=== PATIENT | female | born 1990 | race American Indian/Alaskan Native ===

== ENCOUNTER 2017-10-19 10:56 | Outpatient (CLI) | payer OTHER ==
--- NOTE | 2017-10-19 11:30 | Ultrasound Report ---
BILATERAL BREAST ULTRASOUND: 10/19/17 10:56:00 CLINICAL: 27 are old with recent bilateral palpable lumps. She stated that she had felt something at 12 o'clock in the right breast which has resolved and that her doctor felt something in the left breast and she feels nothing in the left breast. COMPARISON: None. FINDINGS: Ultrasoundof the right breast was performed from 10 o'clock to 2 o'clock and ultrasound of the left breast was performed from 10 o'clock to 2 o'clock and demonstrated normal fibroglandular structures. No mass, cyst or shadowing. IMPRESSION: Negative bilateral breast ultrasound. BI-RADS 1 - - Negative RECOMMENDATION: Clinical followup and routine mammographic screening based on ACS guidelines.
== END 2017-10-19 10:57 | disposition home or self-care (01) ==
LOC: SPVWC 10:56
PROVIDERS: ATTEND Family Medicine
DX: N63.10 Unspecified lump in the right breast, unspecified quadrant (principal); N63.20 Unspecified lump in the left breast, unspecified quadrant